=== PATIENT | female | born 1960 | race Caucasian/White ===

== ENCOUNTER 2023-12-19 09:00 | Outpatient (RCR) | payer SELFPAY ==
--- NOTE | 2023-10-03 09:06 | HP.OTEVAL_ITS ---
Patient's Visit Information Visit Information Visit Information: WILLIAM FRITZ is a 62 year old F, referred to Occupational Therapy by Debora Lepe PA-C, with a diagnosis of Dislocation of L Elbow. Date of Evaluation: 10/03/23 Occupational Therapist: Peggy Bernal Subjective Subjective: This 62 year old female arrives with OT order s/p dislocation of L elbow resulting in ORIF radial head as well as coronoid and completion of hoop maker helper machine lig and annular lig repair 09/12/23 now 3 weeks out today. per pt she fell on cracked side walk 09/06/23. Pt is R hand dominant. Denies pain at this time. pt with long arm orthosis placed at 90 degrees flexion and arm pronated. 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 Objective Objective/Observation: pt arrives this date with arm in sling and long arm orthosis elbow at 90 forearm pronated. pt hesitant to motion initially however s/p ed on proper AROM pt receptive and states that actually feels good. pt L arm incision approximated and intact stitches dissolved. ROM Wrist: 35/35 ROM Comments: ulnar deviation 20 radial deviation 15 full pronation to 65 degrees toward neutral (25 degrees motion) (lacking 65 degrees of motion to achieve neutral at this time) pt is 3 cm from full fist measured at MF Strength Strength Comments: not tested at this time to progress to strengthening once able Edema Elbow: L 28 cm and R 26 cm Quick DASH-Disab of Arm,Shoulder& Hand Quick DASH Score: 72.7250 Goals Goal:: Pt will improve L proof coin collector strength equal to non affected UE in order to return to work related responsibilities Goal:: pt will improve L wrist ext/flex to 50/50 in order to improve functional use of LUE during day to day tasks pt will improve L composite first tpo 0 cm between MF and palm in order to improve functional use of LUE and return to day to day tasks pt will improve forearm rotation equal to non affected UE in order to improve functional use of LUE and return to day to day tasks Goal:: pt will demonstrate reduction of swelling equal to non affected UE (26 cm) just distal to elbow in order to promote AROM and healing Goal:: pt will verbalize/ demonstrate 100% accuracy in proper joint protection and positioning during day to day tasks to assure healing and integrity of structures Goal:: pt will report the ability to perform ADLs at [place] level Goal:: pt will improve quick dash score by 15 points or more (72.72) in order to promote increased functional use of lUE during day to day tasks Rehabilitation General Assessment: This 62 year old female arrives this date with long arm orthosis on elbow in 90 forearm pronated. pt stiff with AROM at hand and wrist as well as slight pronation to nuetral movement. Swelling at arm as well as hand LUE. Pt denies pain at rest and a stretch feeling during AROM. Pt incision well approximated and stitches dissolved. Pt would benefit from OT services 1-2x a week for 6 weeks in order to increase AROM as able decrease stiffness and improve strength once able for return to fuhcntional use of lUE and return to work. Rehabilitation Potential: Good Anticipated Interventions Anticipated Interventions: A/AAROM/PROM, Scar Care, Triggerpoint Release, Desensitization, Modalities, Orthoses, Joint Protection/Energy Conservation, Ergonomic Education, ADL Training, Education re Diagnosis, Education re Self Massage Techniques and Home Program Visit Plan Frequency: 1-2x /Week Duration: 6 Weeks General Plan: AROM (currently working on wrist flex and ext with forearm supported, forearm pronation to nuetral short arc movement a this time and tendon glide) AAROM/PROM strengthening edema management modalities scar mobilization TEXT: Thank you for the opportunity to evaluate your patient. For Medicare and Medicare HMO plans, please review the plan of care and approve it. It will need to be FAXED BACK to us at [phone] for Medicare purposes. Please let me know if there are questions or concerns regarding this plan of care. Physician Signature: Date:
--- NOTE | 2023-11-07 09:31 | HP.OTREVAL ---
Re-Evaluation Intro: Deobra Lepe PA-C, It has been my pleasure to treat WILLIAM FRITZ over the last 5 visits for Dislocation of L Elbow. Please see the progress note below for an update on the occupational therapy plan of care! Subjective Subjective: arrives doing well states she is having some muscles soreness from exercises Objective Objective/Function: lacking 45 degrees extension flexion 110 degrees after heat and stretch ROM lacking 40 degrees of extension flexion at 110 working torward composite fist unable to make at this time Plan Plan Frequency: 1-2x /Week Duration: 6 Weeks Plan: progress through protocal as able Goals Goals Patient Goals: Regain Strength, Return to Work, Decrease Swelling/Stiffness, Use Hand/Wrist/Arm Normally Again, Increase ROM, Be More Independent in ADLS, Resume Former Household Responsibilities (Cooking,Cleaning,Yard, etc.) and Resume Hobbies Goal:: Pt will improve L information tech strength equal to non affected UE in order to return to work related responsibilities Goal:: pt will improve L wrist ext/flex to 50/50 in order to improve functional use of LUE during day to day tasks pt will improve L composite first tpo 0 cm between MF and palm in order to improve functional use of LUE and return to day to day tasks pt will improve forearm rotation equal to non affected UE in order to improve functional use of LUE and return to day to day tasks able to rotate to nuetral per pt does not want to attempt supination until see follow up appointment Goal:: pt will demonstrate reduction of swelling equal to non affected UE (26 cm) just distal to elbow in order to promote AROM and healing Goal:: pt will verbalize/ demonstrate 100% accuracy in proper joint protection and positioning during day to day tasks to assure healing and integrity of structures Goal:: pt will report the ability to perform ADLs at [place] level Goal:: pt will improve quick dash score by 15 points or more (72.72) in order to promote increased functional use of lUE during day to day tasks Anticipated Interventions Anticipated Interventions Anticipated Interventions: A/AAROM/PROM, Scar Care, Triggerpoint Release, Desensitization, Modalities, Orthoses, Joint Protection/Energy Conservation, Ergonomic Education, ADL Training, Education re Diagnosis, Education re Self Massage Techniques and Home Program Re-Evaluation Ending Re-evaluation ending: Please do not hesitate to contact me at [phone] by phone or if you have questions or concerns regarding this new plan of care! Sincerely, Peggy Bernal
--- NOTE | 2023-11-21 09:47 | HP.OTREVAL ---
Re-Evaluation Intro: Debora Lepe PA-C, It has been my pleasure to treat WILLIAM FRITZ over the last 6 visits for Dislocation of L Elbow. Please see the progress note below for an update on the occupational therapy plan of care! Subjective Subjective: pt arrives with sister doing well states doctor has cleared her and wants her to begin more aggressive stretching change in POC this date pt is now receptive to coming once a week and agrees to an hour Objective Objective/Function: pt now at 135 degrees of extension flexion 110 after heat and passive stretch 140 degrees extension 120 degrees elbow flexion Plan Plan Frequency: 1x/Week Duration: 4 Weeks Plan: changing POC to 1x a week for 4 weeks for 60 min for improved progressive prolonged stretching and ROM Goals Goals Patient Goals: Regain Strength, Return to Work, Decrease Swelling/Stiffness, Use Hand/Wrist/Arm Normally Again, Increase ROM, Be More Independent in ADLS, Resume Former Household Responsibilities (Cooking,Cleaning,Yard, etc.) and Resume Hobbies Goal:: 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 equal to non affected UE in order to return to work related responsibilities Goal:: pt will improve L wrist ext/flex to 50/50 in order to improve functional use of LUE during day to day tasks pt will improve L composite first tpo 0 cm between MF and palm in order to improve functional use of LUE and return to day to day tasks pt will improve forearm rotation equal to non affected UE in order to improve functional use of LUE and return to day to day tasks able to rotate to nuetral per pt does not want to attempt supination until see follow up appointment Goal:: pt will demonstrate reduction of swelling equal to non affected UE (26 cm) just distal to elbow in order to promote AROM and healing Goal:: pt will verbalize/ demonstrate 100% accuracy in proper joint protection and positioning during day to day tasks to assure healing and integrity of structures Goal:: pt will report the ability to perform ADLs at [place] level Goal:: pt will improve quick dash score by 15 points or more (72.72) in order to promote increased functional use of lUE during day to day tasks Anticipated Interventions Anticipated Interventions Anticipated Interventions: A/AAROM/PROM, Scar Care, Triggerpoint Release, Desensitization, Modalities, Orthoses, Joint Protection/Energy Conservation, Ergonomic Education, ADL Training, Education re Diagnosis, Education re Self Massage Techniques and Home Program Re-Evaluation Ending Re-evaluation ending: Please do not hesitate to contact me at [phone] by phone or if you have questions or concerns regarding this new plan of care! Sincerely, Peggy Bernal
--- NOTE | 2023-12-19 12:20 | HP.OTDCSUM_ITS ---
Discharge Summary D/C Summary: It has been my pleasure to treat WILLIAM FRITZ under orders from Debora Lepe PA-C, for the diagnosis of Dislocation of L Elbow for a total of 10 visit(s). Please see the following information for a summary of their discharge status. 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 20# R body trimmer upholsterer 45# L lateral 5# R lateral 8# Goals Patient Goals: Regain Strength, Return to Work, Decrease Swelling/Stiffness, Use Hand/Wrist/Arm Normally Again, Increase ROM, Be More Independent in ADLS, Resume Former Household Responsibilities (Cooking,Cleaning,Yard, etc.) and Resume Hobbies Goal:: Pt will improve L body trimmer upholsterer strength equal to non affected UE in order to return to work related responsibilities L 20# R 45# NOT MET Goal:: pt will improve L wrist ext/flex to 50/50 in order to improve functional use of LUE during day to day tasks 41/45 NOT MET progress made pt will improve L composite first tpo 0 cm between MF and palm in order to improve functional use of LUE and return to day to day tasks GOAL MET pt will improve forearm rotation equal to non affected UE in order to improve functional use of LUE and return to day to day tasks now 50 degrees supination Goal:: pt will demonstrate reduction of swelling equal to non affected UE (26 cm) just distal to elbow in order to promote AROM and healing GOAL MET Goal:: pt will verbalize/ demonstrate 100% accuracy in proper joint protection and positioning during day to day tasks to assure healing and integrity of structures GOAL MET Goal:: pt will report the ability to perform ADLs at [place] level GOAL MET Goal:: pt will improve quick dash score by 15 points or more (72.72) in order to promote increased functional use of lUE during day to day tasks GOAL MET Plan Plan: discharge D/C Information Discharge Comments: this 63 year old female seen for OT s/p L elbow terrible triad. pt originally presents in cast limited ROM, functional use and strength. pt progressed throughout POC in AROM, AAROM and PROM progressed in strength decreased pain and return to use of hand during daily functional tasks. pt discharge at this time pt in agreeance. d/c sentence: If there are questions or concerns regarding this patient's occupational therapy, please fell free to call me at [phone]. Thank you for the referral of this patient. Sincerely, Peggy Bernal
--- NOTE | 2023-12-19 12:21 | HP.OT.NRP ---
Patient Information Patient Information: WILLIAM FRITZ was seen in my office for initial evaluation on 10/03/23. The following Plan of Care was established for this patient: POC Established Initial Frequency: 1x/Week Initial Duration: 4 Weeks Plan: discharge Anticipated Interventions Anticipated Interventions: A/AAROM/PROM, Scar Care, Triggerpoint Release, Desensitization, Modalities, Orthoses, Joint Protection/Energy Conservation, Ergonomic Education, ADL Training, Education re Diagnosis, Education re Self Massage Techniques and Home Program Last Seen Last Seen: This patient was last seen in our office 12/19/23. Pertinent comments regarding their Occupational therapy will appear below: This 63 year old female seen for OT after fall onto L arm resulting in terrible triad. pt presented to OT with limited ROM, pain, decreased strength and decreased ability to use L UE during daily functional tasks. pt discharge this date with progress made in ability to make full composite fist, improved wrist ROM, improved supination as well as elbow flexion and extension decreased swelling and decreased pain. pt demonstrates progress made in UB strength and plans to continue exercises at home provided during therapy with assist from family as needed. pt is in agreeance with discharge this date. At this point I will be discontinuing this patient from occupational therapy. I would be happy to see this patient again in the future if found appropriate by the physician. Thank you! Peggy Bernal
== END 2023-12-19 19:00 | disposition home or self-care (01) ==
LOC: OT 09:00
PROVIDERS: Referring Provider Physician Assistant; Visit Provider Physician Assistant
DX: S53.105D Unspecified dislocation of left ulnohumeral joint, subsequent encounter (principal)
CPT/HCPCS: 97110; 97140; 97166; 97530